=== PATIENT | male | born 1965 | race Caucasian/White ===

== ENCOUNTER 2019-05-21 08:19 | Emergency (ER) | payer OTHER ==
[~2019-05-21] VITALS: Ht 182.9 cm; Wt 144.1 kg
[2019-05-21] MEDS ORDERED: PLAV1TAB2 PO (08:31)
[2019-05-21] MEDS ORDERED: SPIR-10 PO (08:31)
[2019-05-21] MEDS ORDERED: METO200T28 PO (08:31)
[2019-05-21] MEDS ORDERED: LISI-542 PO (08:32)
[2019-05-21] MEDS ORDERED: AMIO200T PO (08:32)
[2019-05-21] MEDS ORDERED: BACL10TA2 PO (08:32)
[2019-05-21] MEDS ORDERED: ATOR40TA75 PO (08:32)
[2019-05-21] MEDS ORDERED: FURO20TA2 PO (08:32)
[2019-05-21] MEDS ORDERED: ASPI81TA85 PO (08:32)
[2019-05-21] MEDS ORDERED: NS 500 ML IV ONE (09:30)
[2019-05-21 10:07] LABS: BASO % 0.3 % (0.0-1.0); EOS # 0.1 10^3/uL (0.0-0.50); EOS % 1.1 % (0.0-3.0); HEMATOCRIT 38.1 % (42.0-52.0); HEMOGLOBIN 12.5 g/dl (13.5-17.5); LYMPH # 1.7 10^3/uL (1.5-4.5); LYMPH % 22.3 % (24.0-44.0); MEAN CORPUSCULAR HEMOGLOBIN 32.3 pg (27.0-33.0); MEAN CORPUSCULAR HGB CONC 32.8 g/dl (32.0-36.5); MEAN CORPUSCULAR VOLUME 98.4 fl (80.0-96.0); MONO # 0.4 10^3/uL (0.0-0.8); MONO % 5.5 % (0.0-5.0); NEUTROPHILS # 5.3 10^3/uL (1.8-7.7); NEUTROPHILS % 70.7 % (36.0-66.0); PLATELET COUNT, AUTOMATED 154 10^3/uL (150-450); RED BLOOD COUNT 3.87 10^6/uL (4.30-6.10); WHITE BLOOD COUNT 7.5 10^3/uL (4.0-10.0)
[2019-05-21 10:26] LABS: BLOOD UREA NITROGEN 18 MG/DL (7-18); CALCIUM LEVEL 9.6 MG/DL (8.5-10.1); CARBON DIOXIDE LEVEL 30 MEQ/L (21-32); CHLORIDE LEVEL 103 MEQ/L (98-107); CREATININE FOR GFR 1.24 MG/DL (0.70-1.30); GLOMERULAR FILTRATION RATE > 60.0 (>56); GLUCOSE, FASTING 259 MG/DL (70-100); HEMOGLOBIN A1c 9.7 %; SODIUM LEVEL 140 MEQ/L (136-145)
[2019-05-21] MEDS ORDERED: AUGM875T28 PO (10:49)
[2019-05-21] MEDS ORDERED: METF500T13 PO (10:49)
[2019-05-21] MEDS ORDERED: GLUCMIS7 XX (10:49)
[2019-05-21] MEDS ORDERED: ACCUKIT10 XX (10:49)
[2019-05-21 11:08] VITALS: BP 146/67
== END 2019-05-21 11:08 | disposition home or self-care (01) ==
LOC: M ED 08:19
DX: K04.7 Periapical abscess without sinus (principal); E11.9 Type 2 diabetes mellitus without complications; K05.10 Chronic gingivitis, plaque induced; Z79.899 Other long term (current) drug therapy; Z79.84 Long term (current) use of oral hypoglycemic drugs; Z79.82 Long term (current) use of aspirin; Z79.02 Long term (current) use of antithrombotics/antiplatelets; Z88.5 Allergy status to narcotic agent; Z87.891 Personal history of nicotine dependence